=== PATIENT | female | born 1950 | race Two or more races ===

== ENCOUNTER 2018-02-14 12:58 | Outpatient (CLI) | payer OTHER | END 2018-02-14 13:05 | disposition home or self-care (01) | LOC: RAD 12:58 | DX: R05 Cough (principal); M81.0 Age-related osteoporosis without current pathological fracture ==

== ENCOUNTER 2018-08-19 09:30 | Outpatient (CLI) | payer OTHER | END 2018-08-19 15:37 | disposition home or self-care (01) | LOC: MAMO-SONO 09:30 | DX: Z12.31 Encounter for screening mammogram for malignant neoplasm of breast (principal); Z87.898 Personal history of other specified conditions; N64.89 Other specified disorders of breast ==